=== PATIENT | female | born 1985 | race Caucasian/White ===

== ENCOUNTER 2016-09-06 18:01 | Emergency (ER) | payer SELFPAY ==
[~2016-09-06] VITALS: Ht 167.6 cm; Wt 97.5 kg
[2016-09-06 18:46] VITALS: BP 126/73
== END 2016-09-06 20:04 | disposition home or self-care (01) ==
LOC: ER 18:02
DX: H10.89 Other conjunctivitis (principal)
CPT/HCPCS: 99283; A4606; Z7610

== ENCOUNTER 2020-04-22 19:12 | Emergency (ER) | payer SELFPAY ==
[~2020-04-22] VITALS: Ht 162.6 cm; Wt 93.0 kg
[2020-04-22 19:36] VITALS: BP 130/78
[2020-04-22] MEDS ORDERED: IBUPROFEN 600 MG TABLET ONE (21:29)
[2020-04-22] MEDS ORDERED: HYDROCODONE/APAP 10/325MG TABLET ONE (21:29)
[2020-04-22] MEDS ORDERED: HYDROCODONE/APAP 10/325MG TABLET PO ONE (21:30)
[2020-04-22] MEDS ORDERED: IBUPROFEN 600 MG TABLET PO ONE (21:30)
== END 2020-04-22 22:12 | disposition home or self-care (01) ==
LOC: ER 19:12
DX: S16.1XXA Strain of muscle, fascia and tendon at neck level, initial encounter (principal); S50.02XA Contusion of left elbow, initial encounter; V49.49XA Driver injured in collision with other motor vehicles in traffic accident, initial encounter; Y93.89 Activity, other specified; Y92.488 Other paved roadways as the place of occurrence of the external cause; Y99.8 Other external cause status
CPT/HCPCS: 73080-TC; 73090-TC